=== PATIENT | male | born 1950 | race Caucasian/White ===

== ENCOUNTER → 2016-06-14 | Outpatient (CLI) | payer MEDICARE, OTHER ==
[~2016-06-14] MED LIST: AC325T PO; AML5T PO; ASPI-587 PO; ATEN25TA PO; CEFU500T5 PO; CLPD75T PO; DOXY100T2 PO; LISI10TA2 PO; LISI20TA PO; SIMV40TA2 PO; TADA2.5T PO
--- OUTSIDE RECORDS SUMMARY | 2016-06-14 10:38 | XMS REPORT | Continuity of Care Document ---
Author Author [facility] Organization [facility] Address Unknown Phone Unavailable Support Name Relationship Address Phone ADALBERTO HANKS FACPS FACC Caregiver [address], [address] [place] [address] ELLEN HENDERSON MD Caregiver [phone] [address], [address] [address] MIGUEL MAYERS Next Of Kin [address] [place] [address] Insurance Providers Payer Name Policy Number Subscriber Name Relationship Wps Medicare [id number] Dipti Mayers 18 Self / Same As Patient Blue [facility] [id number] Dipti Mayers 18 Self / Same As Patient Advance Directives Directive Response Recorded Date/Time Advance Directives No 02/07/14 1:48pm Resuscitation Status Full Code 02/07/14 1:48pm Chief Complaint and Reason for Visit Chief Complaint DYSRHYTHMIA Reason for Visit Dysrhythmia, cardiac Problems Medical Problems Problem Onset Date Status Chest pain Unknown Active Dysrhythmia, cardiac Unknown Active Medications Medication Dose Route Sig Days/Qty Instructions Order Date Discontinued Date Status Atenolol 25 Mg PO DAILY 02/02/14 Active Lisinopril 10 Mg PO DAILY 02/02/14 02/04/14 Discontinued Tadalafil 10 Mg PO DAILY 02/02/14 02/06/14 Discontinued Aspirin 81 Mg PO DAILY 30 Qty 02/03/14 Active Lisinopril 20 Mg PO DAILY 02/04/14 02/08/14 Discontinued Acetaminophen 650 Mg PO EVERY 4HRS PRN MILD PAIN 90 Qty 02/06/14 Active Amlodipine Besylate 5 Mg PO DAILY 30 Qty 02/06/14 Active Clopidogrel Bisulfate 75 Mg PO DAILY 90 Qty 02/06/14 Active Simvastatin 40 Mg PO BEDTIME 90 Qty 02/06/14 Active Cefuroxime Axetil (Ceftin) 1 Each PO TWICE A DAY 10 Qty 02/06/14 Active Social History Social History Problem Response Recorded Date/Time Alcohol Use Denies Use 02/07/2014 1:49pm Recreational Drug Use No 02/07/2014 1:49pm Recent Foreign Travel No 02/07/2014 1:49pm Recent Infectious Disease Exposure No 02/07/2014 1:49pm Hospitalization with Isolation Denies 02/08/2014 11:09am Sexually Transmitted Disease No 02/07/2014 1:49pm HIV/AIDS No 02/07/2014 1:49pm Smoking Status Former Smoker 02/07/2014 1:50pm Query Response Start Date Stop Date Smoking Status Former Smoker 02/07/1994 Hospital Discharge Instructions Patient Instructions Physician Instructions Plan of Care/Instructions/FU: Follow up at Dr Hanks's office for wound inspection on Tuesday02/11/14 Keep other follow up appointments at Dr Hanks's office, as well Activity as Tolerated: Yes Discharge Diet: Cardiac Diet Plan of Care Discharge Date 02/08/14 10:25am Disposition 01 HOME, SELF-CARE Instructions/Education Provided Pacemaker (DC) Forms Provided PDI Medical Prescriptions See Medications Section Referrals ADALBERTO HANKS MD FACP FACC CCDS (Unspecified) 02/11/14 Address: [address] [place] [address] [address] [place] [address] Functional Status Query Response Date Recorded Comprehension Ability Understands Concepts February 07, 2014 9:00pm Allergies, Adverse Reactions, Alerts Allergen Type Severity Reaction Status Last Updated No Known Drug Allergies Active 02/02/14 Immunizations Name Given Type Date of Pneumonia Vaccine 02/06/13 Historical Tetanus Booster (TDap) Unknown Historical influenza, split (incl. purified surface antigen) 02/08/14 Administered influenza, split (incl. purified surface antigen) 02/08/14 Administered Vital Signs Acute Vital Signs Vital Response Date/Time Temperature (Fahrenheit) 98.8 degrees F (97.6 - 99.5) Temperature (Calculated Celsius) 37.93732 degrees C (36.4 - 37.5) Temperature Source Tympanic Pulse Rate (adult) 77 bpm (60 - 90) Respiratory Rate 18 bpm (12 - 24) O2 Sat by Pulse Oximetry 98 % (88 - 100) Blood Pressure 137/90 mm Hg Pain Pain Intensity 0 Pain Pain Intensity 0 Height (Feet) 5 feet Height (Inches) 9.00 inches Height (Calculated Centimeters) 175.060691 cm Weight (Pounds) 202 pounds Weight (Ounces) 4.0 oz Weight (Calculated Grams) 43333.058 gm Weight (Calculated Kilograms) 91.525238 kilograms Calculated BMI 29.83 Results Test Source Date Result Interp. Ref. Range Comments Alanine Aminotransferase (ALT/SGPT) February 06, 2014 4:34am 13 U/L N 0- 55 Albumin February 06, 2014 4:34am 3.5 G/DL N 3.2-4.5 Alkaline Phosphatase February 06, 2014 4:34am 42 U/L N 40-136 Aspartate Amino Transf (AST/SGOT) February 06, 2014 4:34am 18 U/L N 5-34 BUN/Creatinine Ratio February 06, 2014 4:34am 17 - Basophils # (Auto) February 03, 2014 10:20am 0.1 10^3/uL N 0.0-0.1 Basophils (%) (Auto) February 03, 2014 10:20am 1 % N 0-10 Blood Urea Nitrogen February 06, 2014 4:34am 14 MG/DL N 7-18 Calcium Level February 06, 2014 4:34am 8.7 MG/DL N 8.5-10.1 Carbon Dioxide Level February 06, 2014 4:34am 20 MMOL/L L 21-32 Chloride Level February 06, 2014 4:34am 110 MMOL/L H 98-107 Cholesterol Level February 03, 2014 10:20am 216 MG/DL H -200 Creatinine February 06, 2014 4:34am 0.83 MG/DL N 0.60-1.30 Ehrlichia chaffeensis IgG Antibody February 05, 2014 8:50am <1:16 - URGENT MESSAGEPLEASE GIVE A COPY OF THE L REPORT TO [facility] MICROBIOLOGY DEPARTMENT FOR ALL POSITIVE EHRLICHIA CHAFFEENSIS ANTIBODY RESULTS ON THIS TEST. Ehrlichia chaffeensis IgM Antibody February 05, 2014 8:50am <1:10 - Interpretative data is available online at:[email or web address] Enter Test Number:[id number] Eosinophils # (Auto) February 03, 2014 10:20am 0.1 10^3/uL N 0.0-0.3 Eosinophils (%) (Auto) February 03, 2014 10:20am 1 % N 0-10 Glucose Level February 06, 2014 4:34am 88 MG/DL N 70-105 HDL Cholesterol February 03, 2014 10:20am 39 MG/DL L 40-60 Hematocrit February 06, 2014 4:34am 41 % N 40-54 Hemoglobin February 06, 2014 4:34am 13.5 G/DL N 13.3-17.7 LDL Cholesterol Direct February 03, 2014 10:20am 155 MG/DL H 1-129 Lyme Disease (B.burgdorferi) Ab February 05, 2014 8:50am 0.15 - Index Value Interpretation for LYME ANTIBODY EIA (POLYVALENT) </=0.90 Negative 0.91 - 1.09 Equivocal >/=1.10 Positive Lymphocytes # (Auto) February 03, 2014 10:20am 1.8 X 10^3 N 1.0-4.0 Lymphocytes (%) (Auto) February 03, 2014 10:20am 16 % N 12-44 Magnesium Level February 04, 2014 5:16am 2.0 MG/DL N 1.8-2.4 Mean Corpuscular Hemoglobin February 06, 2014 4:34am 29 PG N 25-34 Mean Corpuscular Hemoglobin Concent February 06, 2014 4:34am 33 G/DL N 32 -36 Mean Corpuscular Volume February 06, 2014 4:34am 88 FL N 80-99 Mean Platelet Volume February 06, 2014 4:34am 10.7 FL H 7.4-10.4 Monocytes # (Auto) February 03, 2014 10:20am 1.0 X 10^3 N 0.0-1.0 Monocytes (%) (Auto) February 03, 2014 10:20am 9 % N 0-12 Neutrophils # (Auto) February 03, 2014 10:20am 8.2 X 10^3 H 1.8-7.8 Neutrophils (%) (Auto) February 03, 2014 10:20am 73 % N 42-75 Platelet Count February 06, 2014 4:34am 261 10^3/uL N 130-400 Potassium Level February 06, 2014 4:34am 4.0 MMOL/L N 3.6-5.0 Prothrombin Time February 03, 2014 10:20am 13.0 SEC N 12.2-14.7 Red Blood Count February 06, 2014 4:34am 4.65 10^6/uL N 4.35-5.85 Red Cell Distribution Width February 06, 2014 4:34am 14.0 % N 10.0-14.5 Sodium Level February 06, 2014 4:34am 138 MMOL/L N 135-145 Thyroid Stimulating Hormone (TSH) February 04, 2014 5:16am 2.73 UIU/ML N 0.35-4.94 Total Bilirubin February 06, 2014 4:34am 1.3 MG/DL H 0.1-1.0 Total Protein February 06, 2014 4:34am 6.3 G/DL L 6.4-8.2 Triglycerides Level February 03, 2014 10:20am 179 MG/DL H 0-149 Troponin I February 03, 2014 5:25am 5.15 NG/ML PH - RESULT CALLED TO PA AT 0645. RESULTS READ BACK: YES. Urine Bacteria February 04, 2014 4:00pm NEGATIVE /HPF - Has specimen been collected/obtained? Y Urine Bilirubin February 04, 2014 4:00pm NEGATIVE - Has specimen been collected/obtained? Y Urine Casts February 04, 2014 4:00pm NONE /LPF - Has specimen been collected/obtained? Y Urine Clarity February 04, 2014 4:00pm CLEAR - Has specimen been collected/obtained? Y Urine Color February 04, 2014 4:00pm YELLOW - Has specimen been collected/obtained? Y Urine Crystals February 04, 2014 4:00pm NONE /LPF - Has specimen been collected/obtained? Y Urine Culture Indicated February 04, 2014 4:00pm NO - Has specimen been collected/obtained? Y Urine Glucose (UA) February 04, 2014 4:00pm NEGATIVE - Has specimen been collected/obtained? Y Urine Ketones February 04, 2014 4:00pm NEGATIVE - Has specimen been collected/obtained? Y Urine Leukocyte Esterase February 04, 2014 4:00pm 1+ H - Has specimen been collected/obtained? Y Urine Mucus February 04, 2014 4:00pm MODERATE /LPF H - Has specimen been collected/obtained? Y Urine Nitrite February 04, 2014 4:00pm NEGATIVE - Has specimen been collected/obtained? Y Urine Protein February 04, 2014 4:00pm NEGATIVE - Has specimen been collected/obtained? Y Urine RBC February 04, 2014 4:00pm NONE /HPF - Has specimen been collected/obtained? Y Urine Specific [place] February 04, 2014 4:00pm 1.015 L - Has specimen been collected/obtained? Y Urine Squamous Epithelial Cells February 04, 2014 4:00pm RARE /HPF - Has specimen been collected/obtained? Y Urine Urobilinogen February 04, 2014 4:00pm NORMAL MG/DL - Has specimen been collected/obtained? Y Urine WBC February 04, 2014 4:00pm RARE /HPF - Has specimen been collected/obtained? Y Urine pH February 04, 2014 4:00pm 6 - Has specimen been collected/ obtained? Y VLDL Cholesterol February 03, 2014 10:20am 36 MG/DL N 5-40 White Blood Count February 06, 2014 4:34am 9.7 10^3/uL N 4.3-11.0 Tularemia Antibody February 05, 2014 8:50am <1:20 - TULAREMIA AB INTERPRETIVE CRITERIA: <1:20 Negative 1:20 - 1:80 Equivocal > or=1:160 Positive A patient with a Francisella tularensis antibody titer of 1:160 or greater along with compatible signs and symptoms, supports a presumptive diagnosis of tularemia. However, a titer of >=1:160 may also reflect a recent or past infection. An equivocal titer (1:20- 1:80) may be due to a past infection, a very recent infection or even cross reactive antibodies to Yersinia, Brucella, or Proteus OX19. For a definitive serologic diagnosis of tularemia, it is necessary to have a four-fold rise in titer between an acute and convalescent specimen collected 3 weeks apart. 8 Estimat Glomerular Filtration Rate February 06, 2014 4:34am > 60 - GFR INTERPRETIVE DATA UNITS FOR ESTIMATED GFR (eGFR): mL/min/1.73 M2 REFERENCE RANGE FOR ESTIMATED GFR (eGFR) eGFR NORMAL eGFR >60 MODERATELY DECREASED eGFR 30-59 SEVERLY DECREASED eGFR 15-29 KIDNEY FAILURE <15 (OR DIALYSIS) Spotted Fever Group IgG Antibody February 05, 2014 8:50am <1:16 - URGENT MESSAGEPLEASE GIVE A COPY OF THE [facility] REPORT TO [facility] MICROBIOLOGY DEPARTMENT FOR ALL POSITIVE EHRLICHIA CHAFFEENSIS ANTIBODY RESULTS ON THIS TEST. Spotted Fever Group IgM Antibody February 05, 2014 8:50am <1:10 - Interpretative data is available online at:[email or web address] Enter Test Number:[id number] Urine RBC (Auto) February 04, 2014 4:00pm NEGATIVE - Has specimen been collected/obtained? Y INR Comment February 03, 2014 10:20am 1.0 N 0.8-1.4 INTERPRETIVE DATASUGGESTED THERAPEUTIC RANGE FOR INR'S: VENOUS THROMBOSIS, PULMONARY EMBOLISM, OR PREVENTION OF SYSTEMIC EMBOLISM (EG. IN ATRIAL FIBRILLATION): 2.0 - 3.0 MECHANICAL PROSTHETIC HEART VALVES: 2.5 - 3.5* *NOTE: INR'S UP TO 4.5 MAY BE NECESSARY IN SELECTED GROUPS OF HIGH RISK PATIENTS. [employer] CONSENSUS CONFERENCE ON ANTITHROMBOTIC THERAPY (2000). Blood Culture Peripheral-Arm, Left February 04, 2014 8:28pm No growth Procedures Procedure Status Date Provider(s) Tracing only of electrocardiogram completed 02/02/14 ADALBERTO HANKS MD FACP FACC CCDS Tracing only of electrocardiogram completed 02/03/14 RONAK,ADALBERTO DAVIS FACP FACC CCDS Tracing only of electrocardiogram completed 02/03/14 RONAK,ADALBERTO DAVIS FACP FACC CCDS Tracing only of electrocardiogram completed 02/04/14 RONAK,ADALBERTO DAVIS FACP FACC CCDS Tracing only of electrocardiogram completed 02/04/14 RONAK,ADALBERTO DAVIS FACP FACC CCDS Tracing only of electrocardiogram completed 02/05/14 ADALBERTO HANKS MD FACP FACC CCDS Color Doppler echocardiography completed 02/05/14 AWAIS JIN Tracing only of electrocardiogram completed 02/06/14 ADALBERTO HANKS MD FACP FACC CCDS Tracing only of electrocardiogram completed 02/07/14 ELLEN HENDERSON MD Tracing only of electrocardiogram completed 02/08/14 RONAK,ADALBERTO DAVIS FACP FACC CCDS Encounters Encounter Location Date/Time Discharged Inpatient Via [facility] 02/07/14 11:20am Discharged Inpatient Via [facility] 02/03/14 10:20am Recent Diagnosis Dysrhythmia, cardiac
--- NOTE | 2016-06-15 08:19 | ECHOCARDIOGRAPHY REPORT ---
PROCEDURE PHYSICIAN: ADALBERTO HANKS DATE OF PROCEDURE: 06/14/2016 TWO DIMENSIONAL ECHOCARDIOGRAM REPORT PRIMARY PHYSICIAN: Dr. Alvarenga OTHER PHYSICIAN: Dr. Hanks REFERRING PHYSICIAN: ORDERING PHYSICIAN: Carmella Hallman APRN INDICATION FOR THE PROCEDURE: 1. Coronary artery disease. 2. Hypertension. MEASUREMENTS DERIVED VALUES LV DIAMETER (LAX) NORMALS NORMALS Diastolic 6 (3.6-5.2) Eject. Fract. (60%+/-6%) Systolic (2.3-3.9) Diastolic Vol. % Shortening (0.22-0.42) Systolic Vol. Aortic Root 4 IVS THICKNESS Diastolic 0.7 (0.6-1.1) LVPW THICKNESS Diastolic 0.7 (0.6-1.1) LA DIAMETER Systolic 3.5 (2.1-3.7) DESCRIPTION: This is a technically difficult study. The study is not ideal for wall motion analysis. Global left ventricular systolic function appears well preserved. Aortic, mitral and tricuspid valve leaflets show good leaflet excursion. There is no significant pericardial effusion. There appears to be mild enlargement of the left ventricle and mild enlargement of the aortic root. There is no Doppler evidence of any significant valvular stenosis. No significant valvular regurgitation is seen on this study. There is no evidence of significant intracardiac shunt on this transthoracic echocardiographic study. Inferior vena cava appears mostly collapsed during this study. CONCLUSIONS: 1. Normal global left ventricular systolic function with an ejection fraction of approximately 60%. 2. No evidence of significant valvular regurgitation or stenosis. 3. Mild enlargement of the left ventricle. 4. Mild enlargement of the aortic root. Job ID: [id number] Dictated Date: 06/14/2016 12:58:34 Cob Sawyer Date: 06/15/2016 08:04:26 / yas
== END ==
LOC: CARD 10:35
PROVIDERS: ATTEND Nurse Practitioner Family
DX: I25.10 Atherosclerotic heart disease of native coronary artery without angina pectoris (principal); I10 Essential (primary) hypertension; E78.4 Other hyperlipidemia; I34.0 Nonrheumatic mitral (valve) insufficiency
CPT/HCPCS: 93306

== ENCOUNTER → 2016-06-15 | Outpatient (CLI) | payer MEDICARE, OTHER ==
[~2016-06-15] MED LIST changes: +CATHETER FLUSH 10 ML SYR IV PRN; +REGADENOSON 0.4 MG/5 ML SYR (LEXISCAN) IV ONE
--- OUTSIDE RECORDS SUMMARY | 2016-06-15 07:06 | XMS REPORT | Continuity of Care Document ---
Author Author [facility] Organization [facility] Address Unknown Phone Unavailable Support Name Relationship Address Phone ADALBERTO HANKS FACPS FACC Caregiver [address], [address] [place] [address] ELLEN HENDERSON MD Caregiver [phone] [employer], [address] [address] MIGUEL MAYERS Next Of Kin [address] [place] [address] Insurance Providers Payer Name Policy Number Subscriber Name Relationship Wps Medicare [id number] Dipti Mayers 16 Self / Same As Patient Blue [facility] [id number] Dipti Mayers 16 Self / Same As [...] MD FACP FACC CCDS (Unspecified) 02/11/14 Address: [address] [place] [address] [address] & [place] [address] Functional Status Query Response Date [...] F (97.6 - 99.5) Temperature (Calculated Celsius) 37.77098 degrees C (36.4 - 37.5) Temperature Source Tympanic Pulse Rate (adult) 77 bpm (60 - 90) Respiratory Rate 18 bpm (12 - 24) O2 Sat by Pulse Oximetry 98 % (88 - 100) Blood Pressure 137/90 mm Hg Pain Pain Intensity 0 Pain Pain Intensity 0 Height (Feet) 5 feet Height (Inches) 9.00 inches Height (Calculated Centimeters) 175.457258 cm Weight (Pounds) 202 pounds Weight (Ounces) 4.0 oz Weight (Calculated Grams) 31936.058 gm Weight (Calculated Kilograms) 91.385898 kilograms Calculated BMI 29.83 Results Test Source [...] A COPY OF THE L REPORT TO [facility] MICROBIOLOGY DEPARTMENT FOR ALL POSITIVE EHRLICHIA CHAFFEENSIS ANTIBODY RESULTS ON THIS TEST. Ehrlichia chaffeensis IgM Antibody February 05, 2014 8:50am <1:10 - Interpretative data is available online at:[email or web address] Enter Test Number:[id number] Eosinophils # (Auto) February 03, 2014 10:20am [...] Has specimen been collected/obtained? Y Urine Specific [place] February 04, 2014 4:00pm 1.015 L - [...] URGENT MESSAGEPLEASE GIVE A COPY OF THE [facility] REPORT TO [facility] MICROBIOLOGY DEPARTMENT FOR ALL POSITIVE EHRLICHIA CHAFFEENSIS ANTIBODY RESULTS ON THIS TEST. Spotted Fever Group IgM Antibody February 05, 2014 8:50am <1:10 - Interpretative data is available online at:[email or web address] Enter Test Number:[id number] Urine RBC (Auto) February 04, 2014 4:00pm [...] SELECTED GROUPS OF HIGH RISK PATIENTS. [employer] CONSENSUS CONFERENCE ON [...] Encounters Encounter Location Date/Time Discharged Inpatient Via [facility] 02/07/14 11:20am Discharged Inpatient Via [facility] 02/03/14 10:20am Recent Diagnosis Dysrhythmia, cardiac
[2016-06-15 09:10] VITALS: BP 178/84
[2016-06-15 09:17] VITALS: BP 159/67
--- NOTE | 2016-06-16 09:22 | STRESS TEST ---
PROCEDURE PHYSICIAN: ADALBERTO HANKS RESTING AND POST REGADENOSON TECHNETIUM 99M TETROFOSMIN SPECT CT IMAGING DATE OF PROCEDURE: 06/15/2016 ORDERING PHYSICIAN: Carmella Hallman APRN. PRIMARY PHYSICIAN: Dr. Alvarenga OTHER PHYSICIAN: Dr. Hanks CLINICAL DIAGNOSIS: Coronary artery disease, hypertension, hyperlipidemia. Baseline images were carried out after injection of 10.59 mCi of technetium 99m tetrofosmin. This was followed by 0.4 mg regadenoson and 31 mCi of technetium 99m tetrofosmin for stress imaging. The electrocardiogram showed sinus rhythm with incomplete right bundle branch block. There is diffuse T wave abnormality. The electrocardiogram did not change significantly with regadenoson infusion. Isolated premature ventricular contractions were seen. Review of images at rest and following stress, does not indicate significant perfusion defects consistent with myocardial ischemia or infarction. Count uptake is somewhat diminished in the diaphragmatic wall of the left ventricle. This is seen both at rest and following regadenoson infusion and is likely due to diaphragmatic attenuation. Gated images show normal regional wall motion. Normal global left ventricular systolic function. Left ventricular ejection fraction is calculated to be 59%. Left end-diastolic volume 121 mL. TID is absent (0.82). CONCLUSION: 1. No evidence of significant myocardial ischemia or infarction on this study. 2. Mild to moderate cardiomegaly. 3. Normal global left ventricular systolic function with a calculated ejection fraction 59%. Job ID: [id number] Dictated Date: 06/15/2016 16:31:34 Game Producer Date: 06/16/2016 09:15:59 / zhang [place]
== END ==
LOC: CARD 07:03
PROVIDERS: ATTEND Nurse Practitioner Family
DX: I25.10 Atherosclerotic heart disease of native coronary artery without angina pectoris (principal); I10 Essential (primary) hypertension; E78.4 Other hyperlipidemia; I34.0 Nonrheumatic mitral (valve) insufficiency
CPT/HCPCS: 78452; 93017

== ENCOUNTER → 2016-07-07 | Outpatient (CLI) | payer MEDICARE, OTHER ==
[~2016-07-07] MED LIST changes: +IOHEXOL 350 MG/ML 100 ML (OMNIPAQUE 350) VIAL IV ONE; +NS 100 ML (IVPB) BAG IV ONE; -REGADENOSON 0.4 MG/5 ML SYR (LEXISCAN) IV ONE; +RT-ALBUTEROL SULF 2.5 MG/3 ML PRE-MIX VIAL INH ONE
--- OUTSIDE RECORDS SUMMARY | 2016-07-07 11:01 | XMS REPORT | Continuity of Care Document ---
Author Author [facility] Organization [facility] Address Unknown Phone Unavailable Support Name Relationship Address Phone ADALBERTO HANKS FACPS FACC Caregiver [address], [address] [place] [address] ELLEN HENDERSON MD Caregiver [address] [employer], [address] [address] MIGUEL MAYERS Next Of Kin [address] [place] [address] Insurance Providers Payer Name Policy Number Subscriber Name Relationship Wps Medicare [id number] Dipti Mayers 16 Self / Same As Patient Blue [facility] [id number] Dipti Mayers 16 Self / Same As [...] MD FACP FACC CCDS (Unspecified) 02/11/14 Address: [address] [place] [address] [address] [place] [address] Functional Status Query Response Date [...] F (97.6 - 99.5) Temperature (Calculated Celsius) 37.65223 degrees C (36.4 - 37.5) Temperature Source Tympanic Pulse Rate (adult) 77 bpm (60 - 90) Respiratory Rate 18 bpm (12 - 24) O2 Sat by Pulse Oximetry 98 % (88 - 100) Blood Pressure 137/90 mm Hg Pain Pain Intensity 0 Pain Pain Intensity 0 Height (Feet) 5 feet Height (Inches) 9.00 inches Height (Calculated Centimeters) 175.803016 cm Weight (Pounds) 202 pounds Weight (Ounces) 4.0 oz Weight (Calculated Grams) 50449.058 gm Weight (Calculated Kilograms) 91.341930 kilograms Calculated BMI 29.83 Results Test Source [...] A COPY OF THE L REPORT TO [facility] MICROBIOLOGY DEPARTMENT FOR ALL POSITIVE EHRLICHIA CHAFFEENSIS ANTIBODY RESULTS ON THIS TEST. Ehrlichia chaffeensis IgM Antibody February 05, 2014 8:50am <1:10 - Interpretative data is available online at:[email or web address] Enter Test Number:[id number] Eosinophils # (Auto) February 03, 2014 10:20am [...] Has specimen been collected/obtained? Y Urine Specific [place] February 04, 2014 4:00pm 1.015 L - [...] URGENT MESSAGEPLEASE GIVE A COPY OF THE [facility] REPORT TO [facility] MICROBIOLOGY DEPARTMENT FOR ALL POSITIVE EHRLICHIA CHAFFEENSIS ANTIBODY RESULTS ON THIS TEST. Spotted Fever Group IgM Antibody February 05, 2014 8:50am <1:10 - Interpretative data is available online at:[email or web address] Enter Test Number:[id number] Urine RBC (Auto) February 04, 2014 4:00pm [...] SELECTED GROUPS OF HIGH RISK PATIENTS. [employer] CONSENSUS CONFERENCE ON [...] CCDS Tracing only of electrocardiogram completed 02/04/14 ORNAK,ADALBERTO DAVIS FACP FACC CCDS Tracing only of [...] Encounters Encounter Location Date/Time Discharged Inpatient Via [facility] 02/07/14 11:20am Discharged Inpatient Via [facility] 02/03/14 10:20am Recent Diagnosis Dysrhythmia, cardiac
[2016-07-07 11:42] LABS: ANION GAP 11 MMOL/L (5-14); BLOOD UREA NITROGEN 14 MG/DL (7-18); BUN/CREATININE RATIO 15; CALCIUM 9.3 MG/DL (8.5-10.1); CARBON DIOXIDE 21 MMOL/L (21-32); CHLORIDE 110 MMOL/L (98-107); CREATININE SERUM 0.95 MG/DL (0.60-1.30); GFR ESTIMATED > 60; GLUCOSE 88 MG/DL (70-105); POTASSIUM 4.1 MMOL/L (3.6-5.0); SODIUM 142 MMOL/L (135-145)
--- NOTE | 2016-07-07 14:37 | Diagnostic Imaging Report ---
PROCEDURE: CT chest with contrast only. TECHNIQUE: Multiple contiguous axial images were obtained through the chest after administration of intravenous contrast. INDICATION: Enlargement of the aortic root. 100 mL of Omnipaque 350 is administered intravenously. COMPARISON: Comparison study from 02/02/2014 is reviewed. FINDINGS: There is mild dilatation of the aortic root measuring 4.3 cm in maximum dimension based on the coronal plane. This compares to 4 cm on the previous exam from 2013. There is also dilatation of the mid ascending aorta measuring 4.1 cm compared to 4 cm in 2014 exam. The aortic arch and the descending aorta are normal in caliber. The heart size is at the upper limits of normal. No pericardial effusion. There is no pleural effusion. There are cardiac pacer leads seen. There is no mediastinal mass or significantly enlarged lymph nodes in the mediastinum or amee noted. No axillary lymphadenopathy. The lungs demonstrate mild upper lobe predominant emphysema changes. There is no significant consolidation, mass or suspicious nodule. Sections in the upper abdomen demonstrate diffuse hepatic steatosis. Large cystic lesions in the upper pole of the left kidney up to 10 cm with thin septation and no solid component identified seen slightly larger compared to 2013 exam. The osseous structures demonstrate evidence of a compression fracture involving L1 vertebral body, chronic without change from 2014. IMPRESSION: 1. Mild dilatation of the aortic root to 4.3 cm and of the ascending aorta at 4.1 cm, slightly larger compared to January 2014. 2. Hepatic steatosis. Dictated by: Dictated on workstation # [id number]
== END ==
LOC: RT 10:58
PROVIDERS: ATTEND Nurse Practitioner Family
DX: I77.89 Other specified disorders of arteries and arterioles (principal); R06.02 Shortness of breath; I65.23 Occlusion and stenosis of bilateral carotid arteries; I10 Essential (primary) hypertension; E78.4 Other hyperlipidemia; G47.33 Obstructive sleep apnea (adult) (pediatric); E66.09 Other obesity due to excess calories; R42 Dizziness and giddiness; Z95.0 Presence of cardiac pacemaker
CPT/HCPCS: 36415; 71260; 80048; 94060; 94640; 94726; 94729

== ENCOUNTER → 2017-10-11 | Outpatient (CLI) | payer MEDICARE, OTHER ==
[~2017-10-11] MED LIST changes: -CATHETER FLUSH 10 ML SYR IV PRN; -IOHEXOL 350 MG/ML 100 ML (OMNIPAQUE 350) VIAL IV ONE; -NS 100 ML (IVPB) BAG IV ONE; -RT-ALBUTEROL SULF 2.5 MG/3 ML PRE-MIX VIAL INH ONE
[2017-10-11 07:19] LABS: ALANINE AMINOTRANSFERASE 21 U/L (0-55); ALBUMIN 4.1 GM/DL (3.2-4.5); ALKALINE PHOSPHATASE 52 U/L (40-136); BILIRUBIN,TOTAL 0.7 MG/DL (0.1-1.0); BUN/CREATININE RATIO 18; CALCIUM 9.1 MG/DL (8.5-10.1); CARBON DIOXIDE 19 MMOL/L (21-32); CHLORIDE 110 MMOL/L (98-107); CHOLESTEROL 159 MG/DL (< 200); CREATININE SERUM 0.94 MG/DL (0.60-1.30); GFR ESTIMATED > 60; GLUCOSE 99 MG/DL (70-105); HDL CHOLESTEROL 46 MG/DL (40-60); POTASSIUM 4.1 MMOL/L (3.6-5.0); SODIUM 138 MMOL/L (135-145); TRIGLYCERIDES 116 MG/DL (<150); VLDL CHOLESTEROL 23 MG/DL (5-40)
== END ==
LOC: LAB 06:43
PROVIDERS: ATTEND Nurse Practitioner Family
DX: I10 Essential (primary) hypertension (principal); E78.5 Hyperlipidemia, unspecified; I77.89 Other specified disorders of arteries and arterioles; Z95.0 Presence of cardiac pacemaker
CPT/HCPCS: 36415; 80053; 80061

== ENCOUNTER → 2017-10-17 | Outpatient (CLI) | payer MEDICARE, OTHER ==
[~2017-10-17] MED LIST changes: +IOHEXOL 350 MG/ML 100 ML (OMNIPAQUE 350) VIAL IV ONE; +NS 250 ML (IVPB) BAG IV ONE
--- NOTE | 2017-10-17 08:21 | Diagnostic Imaging Report ---
PROCEDURE: CT chest with contrast only. TECHNIQUE: Multiple contiguous axial images were obtained through the chest after administration of intravenous contrast. INDICATION: Pacemaker placement. Study compared to 07/07/2016. Ascending aorta measures 4.1 cm in maximal diameter unchanged from prior. Root of the sinotubular junction stable at 3.6 cm. Heart size and its configuration was normal. There was no pleural or pericardial effusion. There is no pneumothorax. There is no lung mass or suspicious pulmonary nodule. There is no evidence for infiltrate or edema. The upper abdomen reveals intact adrenal glands and a fatty liver with partial visualization of multiple left upper pole renal cortical cysts. IMPRESSION: Stable aortic ectasia without dissection, rupture or mural hemorrhage. No acute pathology. No mass or effusion. Left renal cyst and mild hepatic steatosis chronic. Dictated by: Dictated on workstation # [id number]
== END ==
LOC: RAD 07:08
PROVIDERS: ATTEND Nurse Practitioner Family
DX: N28.1 Cyst of kidney, acquired (principal); K76.0 Fatty (change of) liver, not elsewhere classified; I65.23 Occlusion and stenosis of bilateral carotid arteries; I10 Essential (primary) hypertension; E78.4 Other hyperlipidemia; I77.89 Other specified disorders of arteries and arterioles; Z95.0 Presence of cardiac pacemaker
CPT/HCPCS: 71260

== ENCOUNTER → 2019-06-12 | Outpatient (CLI) | payer MEDICARE ==
[~2019-06-12] VITALS: Ht 175 cm; Wt 121.0 kg
[~2019-06-12] MED LIST changes: +CATHETER FLUSH 10 ML SYR IV PRN; -IOHEXOL 350 MG/ML 100 ML (OMNIPAQUE 350) VIAL IV ONE; -NS 250 ML (IVPB) BAG IV ONE; +REGADENOSON 0.4 MG/5 ML SYR (LEXISCAN) IV ONE
--- NOTE | 2019-06-12 16:19 | STRESS TEST ---
DATE OF SERVICE: 06/12/2019 RESTING AND POST REGADENOSON TECHNETIUM-99M TETROFOSMIN SPECT CT IMAGING ORDERING PHYSICIAN: Dr. Hanks. PRIMARY PHYSICIAN: Dharmesh Alvarenga DO. CLINICAL DIAGNOSES: Paroxysmal atrial fibrillation, hypertension, hyperlipidemia. Baseline images were carried out after injection of 10.54 mCi of technetium-99m Tetrofosmin. This was followed by 0.4 mg of regadenoson and 31.2 mCi of technetium-99m Tetrofosmin for stress imaging. The electrocardiogram showed sinus rhythm with a paced ventricular rhythm at baseline. The patient continued to exhibit intermittent ventricular pacing throughout the study. [place] complexes showed T-wave inversion in the inferolateral leads. The electrocardiogram did not change significantly with regadenoson infusion. He tolerated the procedure well. Review of images at rest and following stress indicates a small transient apical perfusion defect. Gated images show normal regional wall motion. Left ventricular ejection fraction is calculated to be 58%. Left ventricular end diastolic volume 133 mL. TID is absent (1.08). CONCLUSIONS: 1. This study suggests a small amount of apical ischemia. 2. Moderate cardiomegaly. 3. Well preserved global left ventricular systolic function with ejection fraction of 58%. 4. No regional wall motion abnormalities seen on this study. Job ID: [id number] DocumentID: [id number] Dictated Date: 06/12/2019 15:52:13 Shank Taper Date: 06/12/2019 16:18:03 Dictated By: ADALBERTO HANKS MD, MA, FACP, FACC,
== END ==
LOC: CARD 11:33
PROVIDERS: ATTEND Internal Medicine Cardiovascular Disease
DX: I48.0 Paroxysmal atrial fibrillation (principal); I77.89 Other specified disorders of arteries and arterioles; I11.9 Hypertensive heart disease without heart failure; E78.5 Hyperlipidemia, unspecified
CPT/HCPCS: 78452; 93017

== ENCOUNTER 2019-06-26 10:31 | Day surgery (SDC) | payer MEDICARE ==
[2019-06-26] VITALS (8 sets, daily range): BP systolic 135–178; BP diastolic 73–87
[~2019-06-26] VITALS: Ht 175 cm; Wt 121.0 kg
[~2019-06-26 10:31] MED LIST changes: -CATHETER FLUSH 10 ML SYR IV PRN; -REGADENOSON 0.4 MG/5 ML SYR (LEXISCAN) IV ONE
[2019-06-26] MEDS ORDERED: NS IV 1000 ML 1,000 ML ONE (10:49)
[2019-06-26] MEDS ORDERED: HEParin (CATH LAB) 2,000 ML IV ONE (10:49)
[2019-06-26] MEDS ORDERED: LIDOCAINE 1% INJ 20 ML 20 ML VIAL ONE (10:49)
[2019-06-26] MEDS ORDERED: NS IV 1000 ML 1,000 ML IV SCH ×2 (11:00→14:28)
[2019-06-26 11:25] LABS: HEMOGLOBIN 15.8 G/DL (13.3-17.7); MEAN PLATELET VOLUME 10.9 FL (7.4-10.4); RED CELL DISTRIBUTION WIDTH 14.5 % (10.0-14.5); WHITE BLOOD COUNT 6.9 10^3/uL (4.3-11.0)
[2019-06-26] MEDS ORDERED: LISI40TA PO (11:38)
[2019-06-26] MEDS ORDERED: CETI10TA23 PO (11:38)
[2019-06-26] MEDS ORDERED: PRAV20TA3 PO (11:38)
[2019-06-26] MEDS ORDERED: SERT100T8 PO (11:38)
[2019-06-26] MEDS ORDERED: LORA10TA7 PO (11:38)
[2019-06-26] MEDS ORDERED: POTA10TA36 PO (11:38)
[2019-06-26] MEDS ORDERED: APIX5TAB PO (11:38)
[2019-06-26] MEDS ORDERED: FURO20TA4 PO (11:38)
[2019-06-26 11:41] LABS: PROTHROMBIN TIME PATIENT 13.6 SEC (12.2-14.7)
[2019-06-26 11:46] LABS: ALANINE AMINOTRANSFERASE 24 U/L (0-55); ALBUMIN 4.5 GM/DL (3.2-4.5); ALKALINE PHOSPHATASE 69 U/L (40-136); BILIRUBIN,TOTAL 0.9 MG/DL (0.1-1.0); BUN/CREATININE RATIO 14; CALCIUM 9.7 MG/DL (8.5-10.1); CARBON DIOXIDE 23 MMOL/L (21-32); CHLORIDE 107 MMOL/L (98-107); CHOLESTEROL 162 MG/DL (< 200); CREATININE SERUM 1.08 MG/DL (0.60-1.30); GFR ESTIMATED > 60; GLUCOSE 85 MG/DL (70-105); HDL CHOLESTEROL 47 MG/DL (40-60); POTASSIUM 3.8 MMOL/L (3.6-5.0); SODIUM 141 MMOL/L (135-145); TOTAL PROTEIN 7.7 GM/DL (6.4-8.2); TRIGLYCERIDES 124 MG/DL (<150); VLDL CHOLESTEROL 25 MG/DL (5-40)
[2019-06-26] MEDS ORDERED: fentaNYL INJECTION 100 MCG/2 ML AMP ONE (13:35)
[2019-06-26] MEDS ORDERED: MIDAZOLAM 5 MG/5 ML (VERSED) VIAL ONE (13:35)
--- NOTE | 2019-06-26 14:13 | Cardiac Procedure Note-CS/ASA ---
Pre-Procedure Note Pre-Op Procedure Note H&P Reviewed The H&P was reviewed, patient examined and no changes noted. Date H&P Reviewed: Jun 26, 2019 Time H&P Reviewed: 14:13 Conscious Sedation Pre-Proced Time 14:13 ASA Score 3 For ASA 3 and 4: Consider anesthesia and medical clearance. Also, for patients with a history of failed moderate sedation consider anesthesia. Airway Lungs Heart ASA score ASA 1: a normal healthy patient ASA 2: a patient with a mild systemic disease (mid diabetes, controlled hypertension, obesity ASA 3: a patient with a severe systemic disease that limits activity (angina, COPD, prior Myocardial infarction) ASA 4: a patient with an incapacitating disease that is a constant threat to life (CHF, renal failure) ASA 5: a moribund patient not expected to survive 24 hrs. (ruptured aneurysm) ASA 6: a declared brain- patient whose organs are being harvested. For emergent operations, add the letter E after the classification Mallampati Classification Grade 3 Sedation Plan Analgesia, Amnesia, Plan communicated to team members, Discussed options with patient/fam, Discussed risks with patient/fam The patient is an appropriate candidate to undergo the planned procedure, sedation, and anesthesia. The patient immediately re-assessed prior to indication. ADALBERTO SIMONS MD FACP FAC CCDS Jun 26, 2019 14:13
[2019-06-26] MEDS ORDERED: PATIENT MAY USE OWN MEDS, ALL PO SCH (14:30)
--- NOTE | 2019-06-26 14:32 | Discharge Inst-Post CATH ---
Discharge Inst-CATH/EP Post Cardiac Cath/EP D/C Inst Follow Up/Plan F/u with Dr Hanks in 2 weeks ACTIVITY * Go Home directly and rest. * Limit activity of the leg (or wrist if it was used) for 7 days including aerobics, swimming, jogging, bicycling, etc. * Restrict stair-climbing for 7 days if possible, if not, climb up with your n on-cath leg, then bring together on the same step. * Avoid lifting, pushing, pulling or excessive movement of the affected ex tremity for 7 days. * Customary sexual activity may be resumed after 2 days-use caution not to use a position that strains or causes pain to the affected extremity. * No driving for 24 hours. * NO SMOKING. * Avoid straining for bowel movements for 7 days. * Gentle walking on level ground is allowed. * Returning to work will depend on the type of procedure and the results. Your doctor will discuss this with you. CALL YOUR DOCTOR FOR ANY OF THE FOLLOWING: *If bleeding from the puncture site occurs- Apply gentle pressure to site with clean cloth and call your doctor or EMS. * If a knot or lump forms under the skin, increases in size, or causes pain. * If bruising appears to be worsening or moving further down your leg instead of disappearing. * Temperature above 101 F. CARE OF YOUR GROIN INCISION; * Bruising or purple discoloration of the skin near the puncture site is common. * You may shower only, no bathtub bathing for 5 days. Be careful to avoid slipping as your leg may feel stiff. * If a closure device was used on your femoral artery, please see the attached guide regarding care of the device and your leg. * Leave dressing on FOR 24 hours. CARE OF YOUR WRIST INCISION; * Bruising or purple discoloration of the skin near the puncture site is common. * You may shower. * DO NOT submerge wrist. * Leave dressing on FOR 24 hours. ADALBERTO HANKS MD FACP FAC CCDS Jun 26, 2019 14:32
--- NOTE | 2019-06-26 14:33 | Discharge Inst-Cardiology ---
Discharge Inst-Cardiac Discharge Medications Continued Medications: Amlodipine Besylate (Norvasc) 5 Mg Tab 5 MG PO DAILY, #30 TAB 5 Refills Apixaban (Eliquis) 5 Mg Tablet 5 MG PO BID, TAB Aspirin (Aspir 81) 81 Mg Tablet.dr 81 MG PO DAILY, #30 TAB Atenolol (Tenormin 25 Mg) 25 Mg Tablet 25 MG PO DAILY Cetirizine HCl (Cetirizine HCl) 10 Mg Tab.chew 10 MG PO HS, TAB Furosemide (Furosemide) 20 Mg Tablet 20 MG PO DAILY, TAB Lisinopril (Lisinopril) 40 Mg Tablet 40 MG PO DAILY, TAB Loratadine (Loratadine) 10 Mg Tablet 10 MG PO DAILY, TAB Potassium Chloride (Potassium Chloride) 10 Meq Tab.er.prt 10 MEQ PO DAILY Pravastatin Sodium (Pravastatin Sodium) 20 Mg Tablet 20 MG PO DAILY, TAB Sertraline HCl (Sertraline HCl) 100 Mg Tablet 100 MG PO DAILY, TAB ADALBERTO SIMONS MD FACP FACC CCDS Jun 26, 2019 14:33
--- NOTE | 2019-06-26 14:52 | CARDIAC CATHETERIZATION ---
DATE OF SERVICE: 06/26/2019 CARDIAC CATHETERIZATION REPORT The patient is a 68-year-old man with paroxysmal atrial fibrillation who recently had a myocardial perfusion imaging study, which was indicative of apical ischemia. Cardiac catheterization was carried out today after having obtained an informed consent. PROCEDURE: He was brought to the cardiac catheterization laboratory in a fasting state. Right groin was prepared and draped in the usual sterile fashion. Lidocaine 1% for local anesthesia. Modified Seldinger technique was used to advance a 5-Kazakh sheath in the right femoral artery, 5-Kazakh JL4 catheter for left coronary angiography, 5-Kazakh JR4 catheter for right coronary angiography, 5-Kazakh pigtail catheter was used for left heart catheterization and left ventricular angiography. At the end of the procedure, we used Mynx to achieve hemostasis. Angiography of the right femoral artery had been carried out through the sheath at the beginning of the procedure. HEMODYNAMICS: Left ventricular end-diastolic pressure following coronary angiography was 10 mmHg. There was no significant pressure gradient on pullback across the aortic valve. Ascending aortic pressure was 124/62 with a mean 86 mmHg. LEFT VENTRICULAR ANGIOGRAPHY: Left ventricular angiography was carried out in the right anterior oblique projection. Global left ventricular systolic function and normal regional wall motion abnormality is seen. Left ventricular ejection fraction approximately 60%. CORONARY ANGIOGRAPHY: Left main coronary artery, left anterior descending, left circumflex, and right coronary artery are free of angiographically significant disease. Right coronary artery is dominant. CONCLUSIONS: 1. No angiographically significant coronary artery disease. 2. Normal global left ventricular systolic function with ejection fraction approximately 60%. 3. Normal left ventricular end-diastolic pressure. DISCUSSION AND RECOMMENDATIONS: Based on results of the study, myocardial perfusion imaging study appears to have been false positive. Continuing risk factor modification and outpatient followup advised. Job ID: [id number] DocumentID: [id number] Dictated Date: 06/26/2019 14:37:15 Ampoule Filler And Sealer Date: 06/26/2019 14:51:39 Dictated By: ADALBERTO SIOMNS MD, MA, FACP, FACC,
== END 2019-06-26 17:40 | disposition home or self-care (01) ==
LOC: CATH 10:31
PROVIDERS: ATTEND Internal Medicine Cardiovascular Disease
DX: I48.0 Paroxysmal atrial fibrillation (principal); I25.2 Old myocardial infarction; I77.810 Thoracic aortic ectasia; I45.10 Unspecified right bundle-branch block; I44.2 Atrioventricular block, complete; I10 Essential (primary) hypertension; E78.5 Hyperlipidemia, unspecified; K76.0 Fatty (change of) liver, not elsewhere classified; G47.30 Sleep apnea, unspecified; Z79.01 Long term (current) use of anticoagulants; Z79.82 Long term (current) use of aspirin; Z87.891 Personal history of nicotine dependence; Z79.899 Other long term (current) drug therapy; Z95.0 Presence of cardiac pacemaker; Z83.3 Family history of diabetes mellitus
CPT/HCPCS: 36415; 80053; 80061; 85027; 85610; 85730; 87081; 93458

== ENCOUNTER → 2019-11-12 | Outpatient (CLI) | payer MEDICARE ==
[~2019-11-12] MED LIST changes: +APIX5TAB PO; +CETI10TA23 PO; +FURO20TA4 PO; +LISI40TA PO; +LORA10TA7 PO; +POTA10TA36 PO; +PRAV20TA3 PO; +SERT100T8 PO
[2019-11-12 13:16] LABS: BASOPHILS # (AUTO) 0.1 10^3/uL (0.0-0.1); BASOPHILS % (AUTO) 1 % (0-10); EOSINOPHILS # (AUTO) 0.3 10^3/uL (0.0-0.3); EOSINOPHILS % (AUTO) 5 % (0-10); HEMATOCRIT 46 % (40-54); HEMOGLOBIN 15.1 G/DL (13.3-17.7); LYMPHOCYTES # (AUTO) 2.8 X 10^3 (1.0-4.0); LYMPHOCYTES % (AUTO) 38 % (12-44); MEAN CORPUSCULAR HEMOGLOBIN 29 PG (25-34); MEAN CORPUSCULAR HGB CONC 33 G/DL (32-36); MEAN CORPUSCULAR VOLUME 89 FL (80-99); MONOCYTES # (AUTO) 0.8 X 10^3 (0.0-1.0); MONOCYTES % (AUTO) 11 % (0-12); NEUTROPHILS # (AUTO) 3.5 X 10^3 (1.8-7.8); NEUTROPHILS % (AUTO) 46 % (42-75); PLATELET COUNT 225 10^3/uL (130-400); RED CELL DISTRIBUTION WIDTH 14.1 % (10.0-14.5); WHITE BLOOD COUNT 7.5 10^3/uL (4.3-11.0)
[2019-11-12 13:29] LABS: CHLORIDE 107 MMOL/L (98-107); SODIUM 138 MMOL/L (135-145)
[2019-11-12 13:30] LABS: ALBUMIN 4.2 GM/DL (3.2-4.5)
[2019-11-12 13:31] LABS: CALCIUM 9.2 MG/DL (8.5-10.1); TRIGLYCERIDES 173 MG/DL (<150); VLDL CHOLESTEROL 35 MG/DL (5-40)
[2019-11-12 13:32] LABS: GLUCOSE 83 MG/DL (70-105); TOTAL PROTEIN 7.3 GM/DL (6.4-8.2)
[2019-11-12 13:33] LABS: CARBON DIOXIDE 22 MMOL/L (21-32)
[2019-11-12 13:34] LABS: BILIRUBIN,TOTAL 0.9 MG/DL (0.1-1.0)
[2019-11-12 13:36] LABS: ALKALINE PHOSPHATASE 62 U/L (40-136); CHOLESTEROL 153 MG/DL (< 200); CREATININE SERUM 0.97 MG/DL (0.60-1.30); GFR ESTIMATED > 60
[2019-11-12 13:37] LABS: BUN/CREATININE RATIO 13
[2019-11-12 13:38] LABS: HDL CHOLESTEROL 41 MG/DL (40-60)
[2019-11-12 13:39] LABS: ALANINE AMINOTRANSFERASE 25 U/L (0-55); MAGNESIUM 2.3 MG/DL (1.6-2.4)
[2019-11-12 13:44] LABS: ERYTHROCYTE SEDIMENTATION RATE 2 MM/HR (0-30)
== END ==
LOC: CARD 12:56
PROVIDERS: ATTEND Internal Medicine Cardiovascular Disease
DX: I34.0 Nonrheumatic mitral (valve) insufficiency (principal); I10 Essential (primary) hypertension; R00.2 Palpitations; I48.0 Paroxysmal atrial fibrillation; E78.5 Hyperlipidemia, unspecified; I44.2 Atrioventricular block, complete; I65.23 Occlusion and stenosis of bilateral carotid arteries; Z95.0 Presence of cardiac pacemaker
CPT/HCPCS: 36415; 80053; 80061; 83735; 84443; 85025; 85652; 93306

== ENCOUNTER → 2022-03-01 | Outpatient (CLI) | payer MEDICARE, OTHER ==
[~2022-03-01] MED LIST changes: +CATHETER FLUSH 10 ML SYR IV PRN; -CETI10TA23 PO; +CETI10TA24 PO; +HOLD METFORMIN - RECEIVED CONTRAST 20 ML VIAL IV SCH; +IOHEXOL 350 MG/ML 100 ML (OMNIPAQUE 350) VIAL IV ONE; -LISI40TA PO; +LISI40TA9 PO; +NS 100 ML (IVPB) BAG IV ONE; +POTA-177 PO; -POTA10TA36 PO; +RT-ALBUTEROL SULF 2.5 MG/3 ML PRE-MIX VIAL INH ONE; +SERT-414 PO; -SERT100T8 PO
[2022-03-01 12:34] LABS: CREATININE SERUM 0.98 MG/DL (0.60-1.30)
--- NOTE | 2022-03-01 15:16 | Diagnostic Imaging Report ---
PROCEDURE: CT angiography of the chest with contrast. TECHNIQUE: Multiple contiguous axial images were obtained through the chest after uneventful bolus administration of intravenous contrast. 3D reconstructed CTA MIP acquisitions were also performed. Auto Exposure Controls were utilized during the CT exam to meet ALARA standards for radiation dose reduction. DATE: March 01, 2022. COMPARISON: CT chest October 17, 2017. INDICATION: 71-year-old male, shortness of breath with exertion. FINDINGS: There is no identified pulmonary nodule or lung mass. There are upper lobe predominant findings of edema. There is mild dependent atelectasis in the right lower lobe and left lower lobe as well as mild atelectasis in the lingula. There is no identified additional focal airspace consolidation. There is no pneumothorax. There is no pleural effusion. The central airways are patent. The ascending thoracic aorta measures up to maximally 3.9 cm in diameter. This is unchanged since October 17, 2017. There is no identified pulmonary embolus. The heart is not enlarged. There is no pericardial effusion. There are atherosclerotic calcifications. There is no identified abnormally enlarged mediastinal, hilar, or axillary lymph node meeting CT size criteria for adenopathy. There is a lobulated or 2 immediately adjacent low-attenuation masses arising from the upper pole of the left kidney measuring up to approximately 6.1 and 3.9 cm in size each with internal attenuation values consistent with benign renal cysts. There is no identified acute bony abnormality. There is a compression deformity of L1 which is unchanged since the comparison exam. This has approximately 70% height loss IMPRESSION: CT CHEST. 1. No identified pulmonary embolus or other acute cardiopulmonary abnormality. 2. Fairly mild findings of upper lobe predominant emphysema. 3. Benign left renal cysts. 4. Remote prior compression deformity of L1. 5. Unchanged prominence of the diameter of the ascending thoracic aorta measuring up to maximally 3.9 cm in diameter. Dictated by: Dictated on workstation # [id number]
== END ==
LOC: RAD 13:45
PROVIDERS: ATTEND Nurse Practitioner Family
DX: J43.9 Emphysema, unspecified (principal); N28.1 Cyst of kidney, acquired; M43.8X6 Other specified deforming dorsopathies, lumbar region
CPT/HCPCS: 71275; 82565; 84520; 94060; 94726; 94729; C8929; 36415; 93306

== ENCOUNTER 2022-06-09 05:40 | Outpatient (CLI) | payer MEDICARE, OTHER ==
[~2022-06-09] VITALS: Ht 175.3 cm; Wt 127.5 kg
[~2022-06-09 05:40] MED LIST changes: -CATHETER FLUSH 10 ML SYR IV PRN; -HOLD METFORMIN - RECEIVED CONTRAST 20 ML VIAL IV SCH; -IOHEXOL 350 MG/ML 100 ML (OMNIPAQUE 350) VIAL IV ONE; -NS 100 ML (IVPB) BAG IV ONE; -RT-ALBUTEROL SULF 2.5 MG/3 ML PRE-MIX VIAL INH ONE
[2022-06-09] MEDS ORDERED: METF-397 PO (14:14)
[2022-06-09] MEDS ORDERED: IRBE1TAB43 PO (14:14)
[2022-06-09] MEDS ORDERED: METO200T48 PO (14:14)
[2022-06-09] MEDS ORDERED: ASPI-999 PO (14:14)
== END 2022-06-09 14:22 | disposition home or self-care (01) ==
LOC: PREOP 05:40
PROVIDERS: ATTEND Surgery
DX: Z01.818 Encounter for other preprocedural examination (principal)

== ENCOUNTER 2022-06-22 08:49 | Day surgery (SDC) | payer MEDICARE, OTHER ==
[~2022-06-22] VITALS: Ht 175.3 cm; Wt 127.5 kg
[2022-06-22 07:30] VITALS: BP 121/74
[~2022-06-22 08:49] MED LIST changes: +ASPI-999 PO; +IRBE1TAB43 PO; +METF-397 PO; +METO200T48 PO
[2022-06-22] MEDS ORDERED: LACTATED RINGERS 1,000 ML IV STA (09:02)
[2022-06-22] MEDS ORDERED: HURRICAINE EXT TUBE (BENZOCAINE) XX PRN (09:15)
--- NOTE | 2022-06-22 09:34 | Progress Note-Pre Operative ---
Pre-Operative Progress Note Date of Available H&P: May 31, 2022 Date H&P Reviewed: Jun 22, 2022 Time H&P Reviewed: 09:33 History & Physical: H&P Reviewed, Patient Examed, No changes noted Pre-Operative Diagnosis: Positive Cologuard; Dysphagia GEE MCKEON DO Jun 22, 2022 09:34
[2022-06-22] MEDS ORDERED: PROPOFOL INJECTION 50 ML IV ONE (09:54)
[2022-06-22 10:35] VITALS: BP 88/54
--- NOTE | 2022-06-22 10:36 | Progress Note-Post Operative ---
Post-Operative Progess Note Surgeon (s)/Brake Repair Mechanic (s) Surgeon GEE MCKEON DO Brake Repair Mechanic: N/A Pre-Operative Diagnosis Positive Cologuard; Dysphagia Post-Operative Diagnosis Gastritis Colon Polyps Procedure & Operative Findings Date of Procedure 06/22/22 Procedure Performed/Findings EGD w/ bx and Colonoscopy with hot bx polypectomy x3 Anesthesia Type Per BALER Estimated Blood Loss Estimated blood loss (mL): None Specimens/Packing Specimens Removed Colon Polyps Antral and GEJ Bx GEE MCKEON DO Jun 22, 2022 10:36
--- NOTE | 2022-06-22 10:38 | Discharge Inst-Simple/Standard ---
Discharge Inst-Standard Patient Instructions/Follow Up Plan of Care/Instructions/FU: 2 wks Gavino Activity as Tolerated: Yes Discharge Diet: No Restrictions GEE MCKEON DO Jun 22, 2022 10:37
[2022-06-22 10:40] VITALS: BP 113/58
[2022-06-22] MEDS ORDERED: PANT40TA2 PO (10:40)
[2022-06-22 10:45] VITALS: BP 94/62
--- NOTE | 2022-06-22 11:02 | Anesthesia-General Post-Op ---
MAC Patient Condition Mental Status/LOC: Same as Preop Cardiovascular: Satisfactory Nausea/Vomiting: Absent Respiratory: Satisfactory Pain: Controlled Complications: Absent Post Op Complications Complications None Follow Up Care/Instructions Patient Instructions None needed. Anesthesiology Discharge Order Discharge Order Patient is doing well, no complaints, stable vital signs, no apparent adverse anesthesia problems. No complications reported per nursing. OLY SYKES CRNA Jun 22, 2022 11:02
[2022-06-22 11:10] VITALS: BP 94/62
--- NOTE | 2022-06-22 15:36 | OPERATIVE REPORT ---
DATE OF SERVICE: 06/22/2022 PREOPERATIVE DIAGNOSES: Dysphagia and positive Cologuard. POSTOPERATIVE DIAGNOSES: Gastritis, colon polyps. PROCEDURES: EGD with biopsies, colonoscopy with hot biopsy polypectomy x3. SURGEON: Dr. Gee Mancia. ANESTHESIA: Per AEROSPACE TECHNICIAN. ESTIMATED BLOOD LOSS: None. COMPLICATIONS: None. INDICATIONS: The patient is a 71-year-old male with dysphagia symptoms and had a positive Cologuard. He understands risks and benefits of procedure and wishes to proceed. Consent was signed in chart. DESCRIPTION OF PROCEDURE: The patient was taken to the endoscopy suite, placed in left lateral recumbent position. Timeout was performed. Scope was inserted in the mouth, down the esophagus, stomach and into the duodenum. No polyps, masses or ulcerations within the duodenum. Scope was retracted back into the stomach, had gastritis appearance. Biopsy of the antrum was obtained. Scope was retroflexed noting no other pathology. Scope was returned to its normal position, slowly withdrawn until distal esophagus. Biopsy of GE junction was obtained. Scope was then slowly retracted back until completely removed. The patient had digital rectal exam performed. No palpable polyps, masses or ulcerations. Scope was inserted in the rectum, advanced all the way to the cecum with minimal difficulty. Prep was adequate. Scope was slowly retracted back. A small polyp in the cecum, hot biopsy polypectomy was performed. Scope was then continuously retracted back. No polyps, masses or ulcerations within the ascending colon. Transverse colon had a small polyp, which hot biopsy polypectomy was performed. Scope was continuously retracted back into the descending colon where another small polyp was present, which hot biopsy polypectomy was performed. Scope was then slowly retracted back. No polyps, masses or ulcerations in the sigmoid colon and rectum. The scope was retroflexed noting no other pathology. Scope was returned to its normal position, slowly withdrawn until completely removed. The patient tolerated the procedure well without any complications, taken to recovery in stable condition. RECOMMENDATIONS: The patient with gastritis, we will start him on Protonix 40 mg daily. Hopefully, this helps with some of his symptoms. He will follow up in two weeks. The patient will follow up on pathology from the colon polyps. The patient will need repeat colonoscopy in 5 years if benefits outweigh the risk. Due to the patient's age, he would not need any further. We will discuss with the patient. Job ID: [id number] DocumentID: [id number] Dictated Date: 06/22/2022 10:39:53 Racetrack Steward Date: 06/22/2022 15:34:00 Dictated By: GEE MANCIA DO
== END 2022-06-22 11:38 | disposition home or self-care (01) ==
LOC: ENDO 08:49
PROVIDERS: ATTEND Surgery
DX: Z12.11 Encounter for screening for malignant neoplasm of colon (principal); D12.0 Benign neoplasm of cecum; D12.4 Benign neoplasm of descending colon; K63.5 Polyp of colon; K29.70 Gastritis, unspecified, without bleeding; K31.89 Other diseases of stomach and duodenum; K20.90 Esophagitis, unspecified without bleeding; Z68.41 Body mass index [BMI] 40.0-44.9, adult; Z87.891 Personal history of nicotine dependence; Z79.02 Long term (current) use of antithrombotics/antiplatelets